=== PATIENT | male | born 1985 | race Caucasian/White ===

== ENCOUNTER 2022-08-06 08:31 | Outpatient (CLI) | payer BC, SELFPAY ==
[2022-08-06 15:09] LABS: Chloride* 107 mmol/L (96-114); Sodium* 140 mmol/L (135-149)
[2022-08-06 15:10] LABS: Potassium* 4.6 mmol/L (3.6-5.1)
[2022-08-06 15:12] LABS: Carbon Dioxide* 28 mmol/L (20-32); Cholesterol* 188 mg/dL (90-199); Creatinine* 1.1 mg/dL (0.5-1.5); Estimated Glomerular Filt Rate 89 ml/min
[2022-08-06 15:13] LABS: Blood Urea Nitrogen* 14 mg/dL (5-24); Calcium* 9.5 mg/dL (8.4-10.6); Glucose* 92 mg/dL (60-115); HDL Cholesterol* 59 mg/dL (>=40); LDL Cholesterol Calculated 112 mg/dL (<100); Triglycerides* 87 mg/dL (40-149)
== END 2022-08-06 08:32 | disposition home or self-care (01) ==
PROVIDERS: PCP Family Medicine; Visit Provider Family Medicine
DX: Z00.00 Encounter for general adult medical examination without abnormal findings (principal); Z13.6 Encounter for screening for cardiovascular disorders
CPT/HCPCS: 80048; 80061